=== PATIENT | female | born 1980 | race Caucasian/White ===

== ENCOUNTER 2017-12-29 11:52 | Emergency (ER) | payer MEDICAID ==
[~2017-12-29] VITALS: Ht 157.5 cm; Wt 102.1 kg
[2017-12-29 12:08] VITALS: BP 110/79; Ht 157.5 cm; Wt 102.1 kg
== END 2017-12-29 13:47 | disposition home or self-care (01) ==
LOC: ED 11:52
DX: M25.461 Effusion, right knee (principal)

== ENCOUNTER 2018-11-08 19:50 | Emergency (ER) | payer MEDICAID ==
[~2018-11-08] VITALS: Ht 160 cm; Wt 99.8 kg
[2018-11-08 19:53] VITALS: Ht 160 cm; Wt 99.8 kg
[2018-11-08 22:46] VITALS: BP 108/68
== END 2018-11-08 22:46 | disposition home or self-care (01) ==
LOC: ED 19:50
DX: M25.512 Pain in left shoulder (principal); M25.562 Pain in left knee; M25.552 Pain in left hip; Z90.49 Acquired absence of other specified parts of digestive tract; W01.0XXA Fall on same level from slipping, tripping and stumbling without subsequent striking against object, initial encounter; Y93.89 Activity, other specified; Y92.89 Other specified places as the place of occurrence of the external cause; Y99.8 Other external cause status
CPT/HCPCS: J1885